=== PATIENT | male | born 1935 | race Caucasian/White ===

== ENCOUNTER 2021-03-15 09:26 | Outpatient (CLI) | payer OTHER | END 2021-03-15 09:27 | disposition home or self-care (01) | LOC: CSHCT 09:26 | PROVIDERS: ATTEND Internal Medicine Hematology & Oncology | DX: C64.1 Malignant neoplasm of right kidney, except renal pelvis (principal); K43.9 Ventral hernia without obstruction or gangrene; K86.9 Disease of pancreas, unspecified; Z90.5 Acquired absence of kidney; Z90.89 Acquired absence of other organs; Z96.89 Presence of other specified functional implants; J94.8 Other specified pleural conditions | CPT/HCPCS: 74177; 82565 ==

== ENCOUNTER 2021-07-02 09:49 | Outpatient (CLI) | payer OTHER ==
[~2021-07-02 09:49] MED LIST: Iopamidol 300 61% 100 ML VIAL FS ONE
== END 2021-07-02 09:50 | disposition home or self-care (01) ==
LOC: CSHCT 09:49
PROVIDERS: ATTEND Internal Medicine Hematology & Oncology
DX: C64.1 Malignant neoplasm of right kidney, except renal pelvis (principal); K43.9 Ventral hernia without obstruction or gangrene; K86.9 Disease of pancreas, unspecified; Z90.5 Acquired absence of kidney; Z90.89 Acquired absence of other organs; Z96.0 Presence of urogenital implants; K83.8 Other specified diseases of biliary tract; J92.9 Pleural plaque without asbestos
CPT/HCPCS: 74177

== ENCOUNTER 2021-07-13 08:36 | Observation (INO) | payer OTHER ==
[2021-07-13 09:54] LABS: Hemoglobin 15.3 g/dL (13.5-17.5); Mean Corpuscular HGB CONC 34.1 g/dL (32.0-36.0); Mean Corpuscular Hemoglobin 30.7 pg (27.0-33.0); Platelet Count 158 10x3/uL (150-450); RBC Distribution Width 14.4 % (11.5-14.5); Red Blood Cell (RBC) Count 4.99 10x6/uL (4.32-5.72); White Blood Cell (WBC) Count 18.3 10x3/uL (3.5-10.5)
[2021-07-13 09:55] LABS: MDiff Complete? YES
[2021-07-13 10:07] LABS: ALT (SGPT) 65 U/L (8-55); AST (SGOT) 14 U/L (5-34); Albumin 3.6 g/dL (3.4-4.8); Alkaline Phosphatase 183 U/L (40-110); Anion Gap 14 mmol/L (10-20); BUN (Urea Nitrogen) 50 mg/dL (8.4-25.7); Bilirubin, Total 0.6 mg/dL (0.2-1.2); Calc. Creatinine Clearance 0 mL/min (70-130); Carbon Dioxide 28 mmol/L (23-31); Chloride 99 mmol/L (98-107); Globulin 2.3 g/dL (2.4-3.5); Glucose 127 mg/dL (83-110); Potassium 4.9 mmol/L (3.5-5.1); Protein, Total 5.9 g/dL (5.8-8.1); Sodium 136 mmol/L (136-145)
[2021-07-13 10:10] LABS: Bilirubin Neg (Negative); Blood, Urine Negative (Negative); Clarity Clear (Clear); Glucose, Urine (Dipstick) Normal (Negative); Ketone, Urine Negative (Negative); Leukocyte 25 (Negative); Nitrite Negative (Negative); Protein, Urine (Dipstick) 15 mg/dl (Neg-Trace); Urobilinogen Normal mg/dL (Less than 2)
[2021-07-13 10:18] LABS: Bacteria/HPF Rare-Few HPF (None Seen); RBC/HPF 0-3 HPF (0-3)
[2021-07-13 10:28] LABS: Band 1 % (5-11); Lymphocytes 9 % (21-51); Monocytes 7 % (0-10); Neutrophil 82 % (42-75); Reactive Lymphocytes 1 % (0-10)
[2021-07-13 10:29] LABS: Platelet Morphology Comment Appears Adequate
[2021-07-13] MEDS ORDERED: Iopamidol 300 61% 100 ML VIAL FS ONE (15:06)
[2021-07-13] MEDS ORDERED: Ondansetron ODT 4 MG TAB PO PRN (15:28)
[2021-07-13] MEDS ORDERED: Ondansetron PF 4 MG/2 ML Vial IVP PRN (15:28)
[2021-07-13] MEDS ORDERED: hydrALAZINE 20 MG/ML VIAL SLOW IVP PRN ×2 (15:33→18:34)
[2021-07-13 15:58] LABS: Magnesium 2.2 mg/dL (1.6-2.6)
[2021-07-13 17:12] VITALS: BMI 32.3
[2021-07-13] MEDS: Acetaminophen 325 MG TAB PO PRN (17:13)
[2021-07-13] MEDS ORDERED: predniSONE 20 MG TAB PO SCH (20:45)
[2021-07-13] MEDS: Chlorhexidine Gluconate 15 ML UDCUP SSP SCH (22:56)
[2021-07-13] MEDS: Clindamycin/D5W 600 MG in Premix Bag 1 BAG IVPB SCH (22:57)
[2021-07-14 04:47] LABS: ALT (SGPT) 49 U/L (8-55); AST (SGOT) 12 U/L (5-34); Albumin 3.2 g/dL (3.4-4.8); Alkaline Phosphatase 145 U/L (40-110); Anion Gap 14 mmol/L (10-20); BUN (Urea Nitrogen) 36 mg/dL (8.4-25.7); Bilirubin, Total 0.7 mg/dL (0.2-1.2); Calc. Creatinine Clearance 74 mL/min (70-130); Calcium 8.4 mg/dL (7.8-10.44); Carbon Dioxide 24 mmol/L (23-31); Chloride 103 mmol/L (98-107); Globulin 2.8 g/dL (2.4-3.5); Glucose 164 mg/dL (83-110); Potassium 4.7 mmol/L (3.5-5.1); Sodium 136 mmol/L (136-145)
[2021-07-14 04:48] LABS: Hemoglobin 14.5 g/dL (13.5-17.5); Mean Corpuscular HGB CONC 33.6 g/dL (32.0-36.0); Mean Corpuscular Hemoglobin 30.1 pg (27.0-33.0); Mean Corpuscular Volume 89.8 fl (81.2-95.1); Mean Platelet Volume 8.9 fl (7.4-10.4); Platelet Count 149 10x3/uL (150-450); RBC Distribution Width 14.5 % (11.5-14.5); Red Blood Cell (RBC) Count 4.81 10x6/uL (4.32-5.72); White Blood Cell (WBC) Count 14.9 10x3/uL (3.5-10.5)
[2021-07-14] MEDS ORDERED: Clindamycin/D5W 600 mg/50 ml Premix Bag ONE ×2 (05:00→20:38)
[2021-07-14] MEDS: Clindamycin/D5W 600 MG in Premix Bag 1 BAG IVPB SCH ×3 (05:30→21:15)
[2021-07-14 06:28] LABS: MDiff Complete? YES; Platelet Morphology Comment Appears Decreased; RBC Morphology Normal
[2021-07-14 06:30] LABS: Lymphocytes 4 % (21-51); Metamyelocyte 2 % (0-0); Monocytes 5 % (0-10); Neutrophil 85 % (42-75); Reactive Lymphocytes 4 % (0-10)
[2021-07-14] MEDS: Chlorhexidine Gluconate 15 ML UDCUP SSP SCH ×2 (08:49→21:15)
[2021-07-14] MEDS: Tamsulosin HCl 0.4 MG CAP PO SCH (08:50)
[2021-07-14] MEDS: Aspirin 81 mg Enteric Coated Tablet PO SCH (08:50)
[2021-07-14] MEDS: predniSONE 20 MG TAB PO SCH (08:51)
[2021-07-14] MEDS: NIFEdipine XL 30 MG TAB PO SCH (08:52)
[2021-07-14] MEDS ORDERED: Furosemide 20 MG TAB PO SCH (10:30)
[2021-07-14 20:34] LABS: SARS-CoV-2 PCR by NAA Not Detected (NotDetected)
[2021-07-15] MEDS ORDERED: Clindamycin/D5W 600 mg/50 ml Premix Bag ONE (05:04)
[2021-07-15 05:08] LABS: ALT (SGPT) 37 U/L (8-55); AST (SGOT) 12 U/L (5-34); Albumin 3.2 g/dL (3.4-4.8); Alkaline Phosphatase 128 U/L (40-110); Anion Gap 12 mmol/L (10-20); BUN (Urea Nitrogen) 27 mg/dL (8.4-25.7); Bilirubin, Total 0.7 mg/dL (0.2-1.2); Calc. Creatinine Clearance 83 mL/min (70-130); Calcium 8.5 mg/dL (7.8-10.44); Carbon Dioxide 25 mmol/L (23-31); Chloride 103 mmol/L (98-107); Globulin 2.4 g/dL (2.4-3.5); Glucose 124 mg/dL (83-110); Protein, Total 5.6 g/dL (5.8-8.1); Sodium 136 mmol/L (136-145)
[2021-07-15] MEDS: Clindamycin/D5W 600 MG in Premix Bag 1 BAG IVPB SCH (05:22)
[2021-07-15] MEDS: Acetaminophen 325 MG TAB PO PRN (07:33)
[2021-07-15] MEDS: Chlorhexidine Gluconate 15 ML UDCUP SSP SCH (08:29)
[2021-07-15] MEDS: predniSONE 20 MG TAB PO SCH (08:29)
[2021-07-15] MEDS: Tamsulosin HCl 0.4 MG CAP PO SCH (08:29)
[2021-07-15] MEDS: NIFEdipine XL 30 MG TAB PO SCH (08:29)
[2021-07-15] MEDS: Aspirin 81 mg Enteric Coated Tablet PO SCH (08:29)
[2021-07-15] MEDS ORDERED: Furosemide 20 MG TAB PO SCH (09:00)
[2021-07-15 09:14] LABS: #Eosinphils 0.2 10x3/uL (0.0-0.5); #Monocytes 0.6 10x3/uL (0.0-1.1); #Neutrophils 11.2 10x3/uL (1.5-8.4); %Basophils 0.2 % (0.0-2.0); %Eosinophils 1.4 % (0.0-6.0); %Lymphocytes 11.1 % (18.0-47.0); %Monocytes 4.5 % (0.0-10.0); %Neutrophils 80.4 % (40.0-75.0); Hemoglobin 14.1 g/dL (13.5-17.5); Mean Corpuscular HGB CONC 32.6 g/dL (32.0-36.0); Mean Corpuscular Hemoglobin 30.5 pg (27.0-33.0); Mean Corpuscular Volume 93.3 fl (81.2-95.1); Mean Platelet Volume 8.8 fl (7.4-10.4); Platelet Count 148 10x3/uL (150-450); RBC Distribution Width 14.3 % (11.5-14.5); Red Blood Cell (RBC) Count 4.63 10x6/uL (4.32-5.72)
[2021-07-15 09:31] LABS: Troponin I 0.018 ng/mL (< 0.028)
[2021-07-15 12:26] VITALS: BP 127/70; TEMP 98.4
[2021-07-17] MEDS ORDERED: predniSONE 10 MG TAB PO SCH (08:00)
== END 2021-07-15 12:25 | disposition home or self-care (01) ==
LOC: CSHERS 08:36 → CSHTELE 13:36
PROVIDERS: ADMIT Internal Medicine; ATTEND Internal Medicine
DX: D72.829 Elevated white blood cell count, unspecified (principal); K02.9 Dental caries, unspecified; K04.7 Periapical abscess without sinus; R53.1 Weakness; R51.9 Headache, unspecified; R77.8 Other specified abnormalities of plasma proteins; C64.9 Malignant neoplasm of unspecified kidney, except renal pelvis; C78.89 Secondary malignant neoplasm of other digestive organs; I10 Essential (primary) hypertension; E78.5 Hyperlipidemia, unspecified; I25.10 Atherosclerotic heart disease of native coronary artery without angina pectoris; M19.90 Unspecified osteoarthritis, unspecified site; N40.0 Benign prostatic hyperplasia without lower urinary tract symptoms; Z88.8 Allergy status to other drugs, medicaments and biological substances; Z95.1 Presence of aortocoronary bypass graft; Z90.5 Acquired absence of kidney; Z79.82 Long term (current) use of aspirin; Z87.891 Personal history of nicotine dependence; Z79.52 Long term (current) use of systemic steroids; Z20.822 Contact with and (suspected) exposure to COVID-19
CPT/HCPCS: 36415; 36416; 70450; 70487; 71045; 80053; 81003; 81015; 82553; 83605; 83690; 83735; 84443; 84484; 85025; 87040; 93005; 94760; 96374; 96375; 96376; G0378; J0360; J3490; J7512; Q9967; U0003; U0005

== ENCOUNTER 2022-10-06 14:32 | Emergency (ER) | payer MEDICARE, OTHER ==
[2022-10-06 16:12] LABS: #Basophils 0.1 10x3/uL (0.0-0.2); #Eosinphils 0.5 10x3/uL (0.0-0.5); #Monocytes 0.9 10x3/uL (0.0-1.1); #Neutrophils 9.8 10x3/uL (1.5-8.4); %Basophils 0.9 % (0.0-2.0); %Eosinophils 3.4 % (0.0-6.0); %Lymphocytes 16.3 % (18.0-47.0); %Monocytes 6.9 % (0.0-10.0); %Neutrophils 72.1 % (40.0-75.0); Hematocrit 42.7 % (38.8-50.0); Hemoglobin 14.7 g/dL (13.5-17.5); Mean Corpuscular HGB CONC 34.4 g/dL (32.0-36.0); Mean Corpuscular Hemoglobin 31.3 pg (27.0-33.0); Mean Platelet Volume 10.6 fl (7.4-10.4); Platelet Count 237 10x3/uL (150-450); RBC Distribution Width 13.6 % (11.5-14.5); Red Blood Cell (RBC) Count 4.69 10x6/uL (4.32-5.72); White Blood Cell (WBC) Count 13.5 10x3/uL (3.5-10.5)
[2022-10-06 16:13] LABS: Bilirubin Neg (Negative); Blood, Urine Negative (Negative); Clarity Clear (Clear); Glucose, Urine (Dipstick) Normal (Negative); Ketone, Urine Negative (Negative); Leukocyte Negative (Negative); Nitrite Negative (Negative); Protein, Urine (Dipstick) Negative (Neg-Trace); Specific Gravity, Urine 1.015 (1.005-1.030); Urobilinogen Normal mg/dL (Less than 2)
[2022-10-06 16:29] LABS: Troponin I Less than 0.010 ng/mL (< 0.028)
[2022-10-06 17:35] LABS: Bacteria/HPF Rare-Few HPF (None Seen); CAUTI Indications for Culture Pelvic or flank pain; RBC/HPF 0-3 HPF (0-3); Squamous Epithelial 0-3 HPF (0-3); WBC/HPF 0-3 HPF (0-3)
[2022-10-06 17:37] LABS: Urine Culture Reflex No No
[2022-10-06 17:58] LABS: ALT (SGPT) 9 U/L (8-55); AST (SGOT) 16 U/L (5-34); Albumin 3.9 g/dL (3.4-4.8); Alkaline Phosphatase 89 U/L (40-110); Anion Gap 15 mmol/L (10-20); BUN (Urea Nitrogen) 24 mg/dL (8.4-25.7); Bilirubin, Total 0.4 mg/dL (0.2-1.2); Calc. Creatinine Clearance 0 mL/min (70-130); Calcium 8.9 mg/dL (7.8-10.44); Carbon Dioxide 22 mmol/L (23-31); Chloride 106 mmol/L (98-107); Estimated GFR 65; Globulin 2.6 g/dL (2.4-3.5); Glucose 98 mg/dL (83-110); Lipase 53 U/L (8-78); Potassium 4.1 mmol/L (3.5-5.1); Protein, Total 6.5 g/dL (5.8-8.1); Sodium 139 mmol/L (136-145)
[2022-10-06] MEDS ORDERED: hydrALAZINE 20 MG/ML VIAL ONE ×2 (20:12→21:56)
[2022-10-06] MEDS ORDERED: Ketorolac Tromethamine 30 MG/ML VIAL ONE (21:56)
== END 2022-10-06 22:35 ==
LOC: CSHERS 14:32
DX: K82.3 Fistula of gallbladder (principal); C25.9 Malignant neoplasm of pancreas, unspecified; I10 Essential (primary) hypertension; E78.5 Hyperlipidemia, unspecified; Z79.82 Long term (current) use of aspirin; Z79.899 Other long term (current) drug therapy
CPT/HCPCS: 36415; 71045; 74177; 80053; 81001; 83690; 84484; 85025; 93005; 96374; 96375; 96376; J0360; J1885; Q9967

== ENCOUNTER 2022-12-26 08:40 | Outpatient (CLI) | payer OTHER ==
[2022-12-26] MEDS ORDERED: Iopamidol 300 61% 100 ML VIAL FS ONE (10:38)
== END 2022-12-26 08:41 | disposition home or self-care (01) ==
LOC: CSHCT 08:40
PROVIDERS: ATTEND Internal Medicine Hematology & Oncology
DX: C64.1 Malignant neoplasm of right kidney, except renal pelvis (principal); Z90.5 Acquired absence of kidney; D49.0 Neoplasm of unspecified behavior of digestive system; K45.8 Other specified abdominal hernia without obstruction or gangrene
CPT/HCPCS: 74177; 82565; Q9967

== ENCOUNTER 2023-07-14 08:01 | Emergency (ER) | payer OTHER | END 2023-07-14 09:05 | disposition home or self-care (01) | LOC: CSHERS 08:01 | DX: L98.8 Other specified disorders of the skin and subcutaneous tissue (principal); H61.22 Impacted cerumen, left ear; I10 Essential (primary) hypertension | CPT/HCPCS: 99283 ==

== ENCOUNTER 2023-08-02 22:44 | Emergency (ER) | payer OTHER, MEDICARE ==
[2023-08-03] MEDS ORDERED: Acetaminophen 500 MG TAB ONE (00:28)
== END 2023-08-03 01:00 | disposition home or self-care (01) ==
LOC: CSHERS 22:44
DX: L03.211 Cellulitis of face (principal)
CPT/HCPCS: 99283